=== PATIENT | male | born 1960 | race Caucasian/White ===

== ENCOUNTER 2022-10-18 00:20 | Day surgery (SDC) | payer MEDICARE, MEDICAID, SELFPAY ==
[2022-10-10 10:21] VITALS: BMI 42.5
[2022-10-18 08:11] VITALS: BP 144/76; PULSE 70; RESP 20; TEMP 35.8; O2SAT 99
[2022-10-18] MEDS: LACTATED RINGERS 1,000 ML 150 ML IV CONT (08:13)
--- NOTE | 2022-10-18 08:37 | WPDANESEPPF ---
Anes - Initial Pre Proc Eval Procedure: Operation Date: 10/18/22 09:00 Proposed Procedures p Esophagogastroduodenoscopy - Orestes Covarrubias MD Date/Time: 10/18/22 08:37 Surgeon: Orestes Covarrubias MD Pre Op Diagnosis: Cirrhosis Patient Data Age: 62 Gender: M Height: 1.75 m Weight: 131.6 kg Last Vital Signs Temp 96.4 F L 10/18/22 08:11 Pulse 70 10/18/22 08:11 Resp 20 10/18/22 08:11 BP 144/76 H 10/18/22 08:11 Pulse Ox 99 10/18/22 08:11 O2 Del Method Room Air 10/18/22 08:11 Allergies Allergy/AdvReac Type Severity Reaction Status Date / Time No Known Allergies Allergy Verified 10/18/22 08:07 Home Medications Medication Instructions Recorded Confirmed Type aluminum-mag hydroxide-simethicone 5 ml PO ONCE 08/25/22 10/18/22 History 200 mg-200 mg-20 mg/5 mL oral susp (Kaya-Lanta) atorvastatin 10 mg tablet 10 mg PO DAILY 08/25/22 10/18/22 History calcium carbonate 300 mg (750 mg) 300 mg PO BID 08/25/22 10/18/22 History chewable tablet (Tums) cholecalciferol (vitamin D3) 25 25 mcg PO DAILY 08/25/22 10/18/22 History mcg (1,000 unit) capsule ferrous sulfate 325 mg (65 mg 325 mg PO DAILY 08/25/22 10/18/22 History iron) tablet furosemide 40 mg tablet 40 mg PO QAM 08/25/22 10/18/22 History lactulose 10 gram/15 mL oral 10 g PO DAILY 08/25/22 10/18/22 History solution ondansetron 4 mg disintegrating 4 mg PO Q8H 08/25/22 10/18/22 History tablet rifaximin 550 mg tablet (Xifaxan) 550 mg PO DAILY 08/25/22 10/18/22 History spironolactone 50 mg tablet 50 mg PO DAILY 08/25/22 10/18/22 History Patient hx anesthesia problems: none Family hx anesthesia problems: none Results Review: All pre-operative results and documents have been reviewed as part of the pre-operative evaluation. PMFSH Past Medical History Medical History (Updated 08/25/22 @ 09:21 by Orestes Covarrubias MD) Allergies Arthritis Aviles esophagus Cirrhosis Colon cancer screening Elevated liver enzymes Heart attack Hypertension Leg edema Liver encephalopathy Family History Family History Father Diabetes mellitus Heart disease Hypertension Mother Hypertension Social History Social History Smoking packs per day: 1.5 Smoking cigarettes per day: 30.0 Years smoked: 30 Smoking pack-years: 45.00 Smoking status: Former smoker Tobacco type: cigarettes Alcohol intake: former Alcohol use details: former social drinker Substance use: never Substance use type: does not use Living arrangements: shelter Additional living arrangements comments: In shelter for rehab, they are looking for intermediate for [facility] care concerns: No Anes - Eval Final PreProcedure Day of Procedure 10/18/22 08:37 Patient weight: morbidly obese Heart: regular rate and rhythm Lungs: clear to auscultation Airway: Mallampati scale class III Neurological: alert and oriented Last oral intake: >/= 8 hours ASA classification: III Emergent: no Anesthetic plan: proceed Anesthesia type and monitoring: general GIVS and standard monitoring Results Review: All pre-operative results and documents have been reviewed as part of the pre-operative evaluation. Informed Consent: The patient's anesthetic plan and its attendant risks and benefits were discussed with the patient/family/POA. Questions were solicited and answers provided to the satisfaction of the patient/family/POA.
--- NOTE | 2022-10-18 08:49 | PM.HPGS ---
History of Present Illness History of Present Illness Consent: Risks, benefits, and alternatives have been discussed and questions answered. Patient agrees to proceed with procedure. Chief complaint: Cirrhosis Narrative: Morgan Alberts is a 62 year old male with diagnosis of cirrhosis, needs egd to assess if varices. Review of Systems Constitutional: Constitutional: Denies headache(s) and Denies weakness Eyes: Eyes: Denies blurry vision ENT: Reports Normal hearing present, Denies headache(s) and Denies neck pain Cardiovascular: Cardiovascular: Denies chest pain and Denies dyspnea Respiratory: Respiratory: Denies dyspnea Gastrointestinal: Gastrointestinal: Reports no additional gastrointestinal complaints Genitourinary: Genitourinary: Denies dysuria Musculoskeletal: Musculoskeletal: Denies neck pain Integumentary/Breasts: Skin/Breast: Denies dry skin Neurologic: Reports Normal hearing present, Denies headache(s) and Denies weakness Psychiatric: Psychiatric: Denies anxiety Endocrine: Endocrine: Denies change in body appearance Hematologic/Lymphatic: Hematologic/Lymphatic: Denies easy bleeding Allergic/Immunologic: Allergic/Immunologic: Denies urticaria PMF Past Medical History Medical History (Updated 08/25/22 @ 09:21 by Orestes Covarrubias MD) Allergies Arthritis Aviles esophagus Cirrhosis Colon cancer screening Elevated liver enzymes Heart attack Hypertension Leg edema Liver encephalopathy Family History Family History Father Diabetes mellitus Heart disease Hypertension Mother Hypertension Social History Social History Smoking packs per day: 1.5 Smoking cigarettes per day: 30.0 Years smoked: 30 Smoking pack-years: 45.00 Smoking status: Former smoker Tobacco type: cigarettes Alcohol intake: former Alcohol use details: former social drinker Substance use: never Substance use type: does not use Living arrangements: intermediate Additional living arrangements comments: In intermediate for rehab, they are looking for custodial for [facility] Spiritual care concerns: No Meds Home Medications and Allergies Home Medications Medication Instructions Recorded Confirmed Type aluminum-mag hydroxide-simethicone 5 ml PO ONCE 08/25/22 10/18/22 History 200 mg-200 mg-20 mg/5 mL oral susp (Kaya-Lanta) atorvastatin 10 mg tablet 10 mg PO DAILY 08/25/22 10/18/22 History calcium carbonate 300 mg (750 mg) 300 mg PO BID 08/25/22 10/18/22 History chewable tablet (Tums) cholecalciferol (vitamin D3) 25 25 mcg PO DAILY 08/25/22 10/18/22 History mcg (1,000 unit) capsule ferrous sulfate 325 mg (65 mg 325 mg PO DAILY 08/25/22 10/18/22 History iron) tablet furosemide 40 mg tablet 40 mg PO QAM 08/25/22 10/18/22 History lactulose 10 gram/15 mL oral 10 g PO DAILY 08/25/22 10/18/22 History solution ondansetron 4 mg disintegrating 4 mg PO Q8H 08/25/22 10/18/22 History tablet rifaximin 550 mg tablet (Xifaxan) 550 mg PO DAILY 08/25/22 10/18/22 History spironolactone 50 mg tablet 50 mg PO DAILY 08/25/22 10/18/22 History Allergies Allergy/AdvReac Type Severity Reaction Status Date / Time No Known Allergies Allergy Verified 10/18/22 08:07 Vital Signs Vital Signs - 24 hr 10/18/22 08:11 Temperature 96.4 F L Pulse Rate 70 Respiratory Rate 20 Blood Pressure 144/76 H Pulse Oximetry 99 Oxygen Delivery Room Air Exam Const: General: comfortable and no acute distress HENMT: Face/Nose/Sinus: Normal nares present Eyes: General: appearance normal, both eyes and all related structures Neck: Neck: no JVD Resp: Auscultation: clear to auscultation bilaterally Cardio: Rate: regular rate Rhythm: regular rhythm GI: Inspection: non-distended GI Palp: Yes Soft to palpation Skin: General skin exam: normal color Ne
[2022-10-18] MEDS: BENZOCAINE (*SP) 60 ML SPRAY CAN (HURRICAINE) 1 SPRAY MUCOUS MEM (08:57)
[2022-10-18 09:08] VITALS: BP 109/72; PULSE 72; RESP 14; O2SAT 95
[2022-10-18 09:18] VITALS: BP 122/76; PULSE 81; RESP 14; O2SAT 95
[2022-10-18 09:28] VITALS: BP 122/76; PULSE 74; RESP 16; O2SAT 95
== END 2022-10-18 09:43 | disposition home or self-care (01) ==
PROVIDERS: PCP Internal Medicine; Visit Provider Internal Medicine Gastroenterology
PROC: 0DJ08ZZ Inspection of Upper Intestinal Tract, Via Natural or Artificial Opening Endoscopic (ICD-10-PCS; CPT 43235; principal; 2022-10-18 09:00)
DX: K22.70 Barrett's esophagus without dysplasia (principal); K74.60 Unspecified cirrhosis of liver; K44.9 Diaphragmatic hernia without obstruction or gangrene; K29.50 Unspecified chronic gastritis without bleeding; R74.8 Abnormal levels of other serum enzymes; I10 Essential (primary) hypertension; I25.2 Old myocardial infarction; Z87.891 Personal history of nicotine dependence; E66.01 Morbid (severe) obesity due to excess calories; Z68.41 Body mass index [BMI] 40.0-44.9, adult
CPT/HCPCS: 43239; 88305; 88342; J2704; J7120

== ENCOUNTER 2023-02-10 11:09 | Outpatient (CLI) | payer MEDICARE, MEDICAID, SELFPAY ==
--- NOTE | ~2023-02-10 | US_ITS ---
US right upper quadrant INDICATION: Cirrhosis of the liver PROCEDURE: Realtime right upper abdominal ultrasound. COMPARISON: No prior studies for comparison. FINDINGS: The pancreas is not well visualized due to bowel gas and patient body habitus. Liver echot exture is diffusely increased, consistent with fatty infiltration. No focal hepatic masses. There is normal directional flow in the portal vein. There are gallstones. Mild gallbladder wall thickening. Common bile duct measures 5 mm. No sonograp hic Bronson's sign. IMPRESSION: 1: Cholelithiasis with gallbladder wall thickening. 2: Hepatic steatosis. Reviewed, dictated and finalized at location A.
== END 2023-02-10 11:10 | disposition home or self-care (01) ==
PROVIDERS: PCP Internal Medicine; Visit Provider Internal Medicine Gastroenterology
DX: K74.60 Unspecified cirrhosis of liver (principal); K76.0 Fatty (change of) liver, not elsewhere classified; K80.20 Calculus of gallbladder without cholecystitis without obstruction
CPT/HCPCS: 76705

== ENCOUNTER 2023-09-26 01:58 | Day surgery (SDC) | payer MEDICARE, MEDICAID, SELFPAY ==
[2023-09-11 15:38] VITALS: BMI 45.6
--- NOTE | 2023-09-22 12:04 | SUR.PREOP ---
Patient called regarding upcoming procedure. Spoke with Nurse Ford at the residential Reviewed preop instructions, appointment times, and procedure prep. Reinforced patient being NPO after midnight.
[2023-09-26 12:33] VITALS: BP 116/66; PULSE 70; RESP 18; TEMP 36; O2SAT 99; BMI 44.7
--- NOTE | 2023-09-26 12:42 | WPDANESEPPF ---
Anes - Initial Pre Proc Eval Procedure: Operation Date: 09/26/23 13:30 Proposed Procedures p Esophagogastroduodenoscopy - Orestes Covarrubias MD Date/Time: 09/26/23 12:42 Surgeon: Orestes Covarrubias MD Pre Op Diagnosis: Aviles's esophagus Patient Data Age: 63 Gender: M Height: 1.73 m Weight: 133.5 kg Last Vital Signs Temp 96.8 F L 09/26/23 12:33 Pulse 70 09/26/23 12:33 Resp 18 09/26/23 12:33 BP 116/66 09/26/23 12:33 Pulse Ox 99 09/26/23 12:33 O2 Del Method Room Air 09/26/23 12:33 Allergies Allergy/AdvReac Type Severity Reaction Status Date / Time No Known Allergies Allergy Verified 09/26/23 12:31 Home Medications Medication Instructions Recorded Confirmed Type aluminum-mag hydroxide-simethicone 5 ml PO Q4H PRN inidgestion 08/25/22 09/26/23 History 200 mg-200 mg-20 mg/5 mL oral susp (Kaya-Lanta) calcium carbonate 300 mg (750 mg) 300 mg PO Q4H PRN Indigestion 08/25/22 09/26/23 History chewable tablet (Tums) cholecalciferol (vitamin D3) 25 25 mcg PO DAILY 08/25/22 09/26/23 History mcg (1,000 unit) capsule ferrous sulfate 325 mg (65 mg 325 mg PO DAILY 08/25/22 09/26/23 History iron) tablet furosemide 40 mg tablet 40 mg PO QAM 08/25/22 09/26/23 History ondansetron 4 mg disintegrating 4 mg PO Q8H PRN Nausea 08/25/22 09/26/23 History tablet spironolactone 50 mg tablet 50 mg PO DAILY 08/25/22 09/26/23 History pantoprazole 40 mg tablet,delayed 40 mg PO QAM #30 tabs 10/18/22 09/26/23 Rx release (Protonix) lactulose 10 gram/15 mL oral 45 ml PO QID 08/25/23 09/26/23 History solution acetaminophen 325 mg tablet 650 mg PO Q4H PRN Pain 09/11/23 09/26/23 History aripiprazole 5 mg tablet 5 mg PO QPM 09/11/23 09/26/23 History aspirin 81 mg tablet 81 mg PO DAILY 09/11/23 09/26/23 History escitalopram oxalate 10 mg tablet 10 mg PO DAILY 09/11/23 09/26/23 History magnesium oxide 400 mg PO DAILY 09/11/23 09/26/23 History rifaximin 200 mg tablet (Xifaxan) 200 mg PO TID 09/11/23 09/26/23 History sodium chloride 1,000 mg soluble 1,000 mg PO BID 09/11/23 09/26/23 History tablet tramadol 50 mg tablet 50 mg PO Q8H PRN Pain 09/11/23 09/26/23 History Patient hx anesthesia problems: none Family hx anesthesia problems: none Results Review: All pre-operative results and documents have been reviewed as part of the pre-operative evaluation. [facility], [facility] Past Medical History Medical History (Updated 08/25/23 @ 13:56 by GARRETT Rodriguez) Allergies Anemia Arthritis Aviles esophagus Cirrhosis Colon cancer screening Elevated liver enzymes Heart attack Hypertension Leg edema Liver encephalopathy Surgical History Surgical History (Updated 08/27/23 @ 19:49 by GARRETT Rodriguez) Elevated ferritin Family History Family History Father Diabetes mellitus Heart disease Hypertension Mother Hypertension Social History Social History Smoking packs per day: 1.5 Smoking cigarettes per day: 30.0 Years smoked: 30 Smoking pack-years: 45.00 Smoking status: Former smoker Tobacco type: cigarettes Alcohol intake: former Alcohol use details: social drinker Substance use: never Substance use type: does not use Living arrangements: prison Additional living arrangements comments: In prison for rehab, they are looking for fpc for [facility] care concerns: No Anes - Eval Final PreProcedure Day of Procedure 09/26/23 12:42 Patient weight: morbidly obese Heart: regular rate and rhythm Lungs: clear to auscultation Airway: Mallampati scale class III Neurological: alert and oriented Last oral intake: >/= 8 hours ASA classification: III Emergent: no Anesthetic plan: proceed Anesthesia type and monitoring: general GIVS and standard monitoring Results Review: All pre-operative results
--- NOTE | 2023-09-26 12:48 | PM.HPGS ---
History of Present Illness History of Present Illness Consent: Risks, benefits, and alternatives have been discussed and questions answered. Patient agrees to proceed with procedure. Chief complaint: Hutchins's esophagus Narrative: Morgan Alberts is a 63 year old male with cirrhosis and PSE on xifaxan and lactulose, GERD with long segement hutchins's EGD last year, he is a halfway patient and poor historian. Review of Systems Constitutional: Constitutional: Denies headache(s) Eyes: Eyes: Denies blurry vision ENT: Reports Normal hearing present and Denies neck pain Cardiovascular: Cardiovascular: Denies chest pain Respiratory: Respiratory: Denies dyspnea Gastrointestinal: Gastrointestinal: Reports no additional gastrointestinal complaints Genitourinary: Genitourinary: Denies dysuria Musculoskeletal: Musculoskeletal: Denies neck pain Integumentary/Breasts: Skin/Breast: Denies dry skin Neurologic: Reports Normal hearing present, Reports confusion and Denies headache(s) Psychiatric: Psychiatric: Reports anxiety Endocrine: Endocrine: Denies change in body appearance Allergic/Immunologic: Allergic/Immunologic: Denies urticaria PMFSH Past Medical History Medical History (Updated 08/25/23 @ 13:56 by GARRETT Rodriguez) Allergies Anemia Arthritis Hutchins esophagus Cirrhosis Colon cancer screening Elevated liver enzymes Heart attack Hypertension Leg edema Liver encephalopathy Surgical History Surgical History (Updated 08/27/23 @ 19:49 by GARRETT Rodriguez) Elevated ferritin Family History Family History Father Diabetes mellitus Heart disease Hypertension Mother Hypertension Social History Social History Smoking packs per day: 1.5 Smoking cigarettes per day: 30.0 Years smoked: 30 Smoking pack-years: 45.00 Smoking status: Former smoker Tobacco type: cigarettes Alcohol intake: former Alcohol use details: social drinker Substance use: never Substance use type: does not use Living arrangements: halfway Additional living arrangements comments: In halfway for rehab, they are looking for assisted for [employer] Spiritual care concerns: No Meds Home Medications and Allergies Home Medications Medication Instructions Recorded Confirmed Type aluminum-mag hydroxide-simethicone 5 ml PO Q4H PRN inidgestion 08/25/22 09/26/23 History 200 mg-200 mg-20 mg/5 mL oral susp (Kaya-Lanta) calcium carbonate 300 mg (750 mg) 300 mg PO Q4H PRN Indigestion 08/25/22 09/26/23 History chewable tablet (Tums) cholecalciferol (vitamin D3) 25 25 mcg PO DAILY 08/25/22 09/26/23 History mcg (1,000 unit) capsule ferrous sulfate 325 mg (65 mg 325 mg PO DAILY 08/25/22 09/26/23 History iron) tablet furosemide 40 mg tablet 40 mg PO QAM 08/25/22 09/26/23 History ondansetron 4 mg disintegrating 4 mg PO Q8H PRN Nausea 08/25/22 09/26/23 History tablet spironolactone 50 mg tablet 50 mg PO DAILY 08/25/22 09/26/23 History pantoprazole 40 mg tablet,delayed 40 mg PO QAM #30 tabs 10/18/22 09/26/23 Rx release (Protonix) lactulose 10 gram/15 mL oral 45 ml PO QID 08/25/23 09/26/23 History solution acetaminophen 325 mg tablet 650 mg PO Q4H PRN Pain 09/11/23 09/26/23 History aripiprazole 5 mg tablet 5 mg PO QPM 09/11/23 09/26/23 History aspirin 81 mg tablet 81 mg PO DAILY 09/11/23 09/26/23 History escitalopram oxalate 10 mg tablet 10 mg PO DAILY 09/11/23 09/26/23 History magnesium oxide 400 mg PO DAILY 09/11/23 09/26/23 History rifaximin 200 mg tablet (Xifaxan) 200 mg PO TID 09/11/23 09/26/23 History sodium chloride 1,000 mg soluble 1,000 mg PO BID 09/11/23 09/26/23 History tablet tramadol 50 mg tablet 50 mg PO Q8H PRN Pain 09/11/23 09/26/23 History Allergies Allergy/AdvReac Type Severity Reaction Status Date / Time No Known Allergies Aller
[2023-09-26] MEDS: LACTATED RINGERS 1,000 ML 150 ML IV CONT (13:44)
[2023-09-26 14:19] VITALS: BP 97/59; PULSE 78; RESP 22; O2SAT 97
[2023-09-26 14:29] VITALS: BP 96/59; PULSE 81; RESP 18; O2SAT 100
[2023-09-26 14:39] VITALS: BP 110/68; PULSE 84; RESP 20; O2SAT 100
--- NOTE | 2023-09-26 14:45 | SUR.PHASEII ---
REPORT CALLED TO GILA AT FACILITY, DENIES QUESTIONS OR CONCERNS, PT TRANSPORTED BACK TO FACILITY PER VAULT CASHIER.
== END 2023-09-26 14:55 | disposition home or self-care (01) ==
PROVIDERS: PCP Internal Medicine; Visit Provider Internal Medicine Gastroenterology
PROC: 0DJ08ZZ Inspection of Upper Intestinal Tract, Via Natural or Artificial Opening Endoscopic (ICD-10-PCS; CPT 43235; principal; 2023-09-26 13:30)
DX: K22.70 Barrett's esophagus without dysplasia (principal); K29.50 Unspecified chronic gastritis without bleeding; K44.9 Diaphragmatic hernia without obstruction or gangrene; I10 Essential (primary) hypertension; D64.9 Anemia, unspecified; K74.60 Unspecified cirrhosis of liver; I25.2 Old myocardial infarction; E66.01 Morbid (severe) obesity due to excess calories; Z68.41 Body mass index [BMI] 40.0-44.9, adult; Z79.82 Long term (current) use of aspirin; Z79.891 Long term (current) use of opiate analgesic; Z87.891 Personal history of nicotine dependence; Z82.49 Family history of ischemic heart disease and other diseases of the circulatory system
CPT/HCPCS: 43239; 88305; J0461; J2704; J7120

== ENCOUNTER 2023-10-05 08:05 | Outpatient (CLI) | payer MEDICARE, MEDICAID, SELFPAY ==
--- NOTE | ~2023-10-05 | US_ITS ---
Limited Abdominal Sonogram: Real-time sonographic imaging of the right upper quadrant was performed. Clinical History: Cirrhosis of liver Findings: The liver is partially obscured by bowel gas shadowing. Visualized liver appears somewhat echogenic without definite mass lesion or biliary dilatation.. Main portal vein demonstrates normal d irection of flow. The gallbladder is well partially distended, suspected gallstones. The common bile duct measures 7 mm. The pancreas is obscured by bowel gas shadowing. Impression: Suspected cholelithiasis. Probable fatty infiltration of liver. Suboptimal exam due to bowel gas shadowing/body habitus. Reviewed, dictated and finalized at location . [facility] Impression: Suspected cholelithiasis. Probable fatty infiltration of liver. Suboptimal exam due to bowel gas shadowing/body habitus.
--- NOTE | ~2023-10-05 | CT_ITS ---
EXAMINATION: CT thoracic spine wo con DATE: 10/05/2023 09:03 INDICATION: Thoracic spine pain. [place]. TECHNIQUE: Computed tomography (CT) of the thoracic spine was performed without intravenous contrast. Automated exposure control and iterative reconstruction technique were employed. The dose-length pro duct was 1719.64 mGy-cm. COMPARISON: None FINDINGS: Partially visualized is a TIPS. Calcifications in the spleen are consistent with old granul omatous disease. There is 12 degrees levoscoliosis of cervicothoracic spine. There is a compression f racture of T12 with 1/5 loss of height. There are Schmorl's nodes at multiple levels. There is severe cervical spondylosis. In the thoracic spine, there is mildly decreased disc height at T4-T5 and T5-T 6, moderately decreased disc height at T6-T7, T7-T8, and T8-T9, and mildly decreased disc height at T 9-T10. In the thoracic spine, there is multilevel facet joint osteoarthritis, severe on the left at T 7-T8. In thoracic spine, there is mild left neural foraminal stenosis at T7-T8 and T9-T10. In the tho racic spine, there is mild central canal stenosis at T9-T10 and T11-T12. IMPRESSION: 1. T12 compression fracture, likely acute or subacute. 2. Moderate thoracic spondylosis. 3. Cervicothoracic levoscoliosis. Reviewed, dictated and finalized at location A. [employer]PER[employer]ENDENT
== END 2023-10-05 08:06 | disposition home or self-care (01) ==
PROVIDERS: PCP Internal Medicine; Visit Provider Nurse Practitioner Family
DX: R29.6 Repeated falls (principal); M47.894 Other spondylosis, thoracic region
CPT/HCPCS: 72128; 76705